=== PATIENT | female | born 1930 | race Caucasian/White ===

== ENCOUNTER 2016-09-16 19:36 | Inpatient (IN) | payer MEDICARE, OTHER ==
--- NOTE | ~2016-09-16 | HP ---
History And Physical [address] [place]. [address] NAME: CAROLINE LILLY : 32 STATUS : ADM IN [facility]#: [id number] AGE: 86 ADM/REG DATE : 09/16/16 MR#: [id number] REPORT SERV DATE: 09/17/16 DICTATED BY: EVELYN PARISI DATE: 09/17/16 REPORT STATUS : Draft TRANSCRIBED BY: MODAnahi DATE: 09/17/16 DATE OF ADMISSION: 09/16/2016 CHIEF COMPLAINT: Right hip pain. HISTORY OF PRESENT ILLNESS: 86-year-old, white female, transferred from [facility] at [facility] to [facility] for the above complaint. Due to the patient's decreased mental status and dementia, full history and physical exam is difficult to obtain. Chart and staff were reviewed. The patient has been residing at [facility]. She started complaining of hip pain. She was sent to the emergency room, workup there revealed acute right hip fracture, probable right lower lobe pneumonia and urine that appeared to possibly be infected. She was therefore admitted for IV antibiotics, orthopedic consultation, pain management, and medical care. Currently, the patient is resting quietly in bed, denies any severe pain at this time, no nausea or vomiting, no fever or chills, is at her pleasantly demented self at this time. ALLERGIES: NO KNOWN DRUG ALLERGIES. MEDICATIONS: Please see MAR. PAST MEDICAL HISTORY: Dementia, depression, chronic kidney disease stage 3, CHF - questionable kind, atherosclerotic arterial disease, history of atrial fibrillation, AR, hyperlipidemia, history of smoking, gait impairment, history of DVT, anemia of chronic disease. PAST SURGICAL HISTORY: Bilateral breast implants. SOCIAL HISTORY: The patient resides at [facility] at [facility]. Does have a son and daughter. Cheondoism uatsdin. FAMILY HISTORY: Unable to obtain. REVIEW OF SYSTEMS: Unable to obtain. PHYSICAL EXAMINATION: VITAL SIGNS: Blood pressure 158/70, pulse 90, respirations 18, temperature 98.4. GENERAL: Pleasantly, confused, white female, in no acute distress at this time. HEAD: Normocephalic, atraumatic. EYES: Anicteric. ENT: Moist mucosa with poor dentition. NECK: Cachectic but no JVD. History And Physical [address] [place]. [address] NAME: CAROLINE LILLY : 32 STATUS : ADM IN PAT#: [id number] AGE: 86 ADM/REG DATE : 09/16/16 MR#: [id number] REPORT SERV DATE: 09/17/16 DICTATED BY: EVELYN PARISI DATE: 09/17/16 REPORT STATUS : Draft TRANSCRIBED BY: MODL DATE: 09/17/16 LUNGS: CTA without RRW. HEART: Regular rate and rhythm without murmurs, gallops, or rubs. ABDOMEN: Soft, positive bowel sounds, NT, ND. No R/G. EXTREMITIES: Wasting is present. NEUROLOGIC: No acute focal changes as she is pleasantly demented. MUSCULOSKELETAL: Right hip pain with some range of motion. LAB: CBC shows WBC 16, H and H 12.0 and 36.6, PLT 223. Chemistry shows sodium 133, K 4.6, CO 97, CO2 of 24, BUN 12, creatinine 1.26. GFR 39. Urinalysis shows cloudy urine with large amount of LEs and 45 wbc's and many bacteria with 1 epithelial cell. IMAGING: Portable chest x-ray done in the emergency room shows suspected right upper lobe pneumonia and bilateral calcified breast implants. Right hip x-ray shows Garden 1 femoral neck fracture. IMPRESSION: 1. Gait impairment. 2. Fall with Garden 1 femoral neck right fracture. 3. Pyuria. 4. Leukocytosis. 5. Hyponatremia. 6. Anemia of chronic disease. 7. Chronic kidney disease stage 3. 8. Dementia. PLAN: 1. We will consult Ortho and initiate pain control. The patient is at risk for respiratory depression due to pain medications. 2. Follow leukocytosis and treat with antibiotics. The patient is at risk for sepsis. 3. Follow up on urine culture and treat accordingly. The patient is at risk for pyelonephritis and multi-system organ failure. 4. Follow sodium and watch symptoms as the patient is at risk for BENEFITS REPRESENTATIVE symptoms. 5. Watch H and H, slowly falling. The patient is at risk for acute coronary syndrome. 6. Avoid any nephrotoxins and watch renal function as she is at risk for acute kidney failure. 7. DVT prophylaxis. 8. Make sure the patient's needs are met as she does have dementia and is at risk for increased behaviors. /JP Evelyn Parisi M.D. / [id number] History And Physical [address] [address] NAME: CAROLINE LILLY : 31 STATUS : ADM IN [facility]#: [id number] AGE: 86 ADM/REG DATE : 09/16/16 MR#: [id number] REPORT SERV DATE: 09/17/16 DICTATED BY: EVELYN PARISI DATE: 09/17/16 REPORT STATUS : Draft TRANSCRIBED BY: MOEL DATE: 09/17/16 CC: Evelyn Parisi M.D.
--- NOTE | ~2016-09-16 | OP ---
Record Of Operation [facility] [address] [place]. [address] NAME: CAROLINE LILLY : 32 STATUS : ADM IN [facility]#: [id number] AGE: 86 ADM/REG DATE : 09/16/16 MR#: [id number] REPORT SERV DATE: 09/18/16 DICTATED BY: SAM MELÉNDEZ DATE: 09/18/16 REPORT STATUS : Draft TRANSCRIBED BY: MODL DATE: 09/18/16 DATE OF PROCEDURE: 09/18/2016 PREOPERATIVE DIAGNOSIS: Displaced right femoral neck fracture. POSTOPERATIVE DIAGNOSIS: Displaced right femoral neck fracture. OPERATION: Right hip hemiarthroplasty. SURGEON: Sam Meléndez MD QUALITY COMPLIANCE MANAGER: Bebeto Orr. ANESTHESIA: General endotracheal. ESTIMATED BLOOD LOSS: 200 mL. COMPLICATIONS: None. DRAIN: ConstaVac x1. IMPLANTS: DePuy Lejunior size 5 standard offset femoral component with a 46 mm outer diameter, +0 monopolar head and neck segment. INDICATIONS: Ms. Lilly is an 86-year-old female who sustained the above-mentioned fracture in a fall. It was recommended that she undergo hemiarthroplasty. Risks of the procedure as detailed in the orthopedic consult and operative consent were discussed with her daughter preoperatively. She fully understood and has requested to proceed. DESCRIPTION OF PROCEDURE: The patient was brought to the operating room and after adequate induction of anesthesia was positioned in the lateral decubitus position using the hip academic advisement director positioners. All appropriate pressure points were padded. The patient was given 1 gram of Ancef IV preoperatively. The hip was then prepped and draped in the usual sterile fashion. A posterolateral approach to the hip was performed. The skin and subcutaneous tissues were incised sharply using a #10 blade; electrocautery was used as needed to maintain hemostasis. The fascia conner and fascia over the gluteus susan were incised in line with the incision and the fibers of the gluteus susan split using blunt dissection. The sciatic nerve was identified and carefully protected throughout the remainder of the case. A Charnley retractor was placed. The hip was then placed in flexion and internal rotation and the gluteus medius retracted anteriorly to expose the piriformis tendon. A full thickness capsulotomy was begun at the superior border of the piriformis tendon and extended anteriorly inferiorly using an inside out technique, taking down a portion of the short external rotators. Care was taken not to damage the labrum of the hip. The fracture site was exposed and the femur displaced anteriorly. A corkscrew was used to excise the femoral head and the femoral head sized using hole templates. The appropriate sized femoral head trial was placed in the acetabulum to assure appropriate fit. Record Of Operation [facility] [address] [place]. [address] NAME: CAROLINE LILLY : 32 STATUS : ADM IN PAT#: [id number] AGE: 86 ADM/REG DATE : 09/16/16 MR#: [id number] REPORT SERV DATE: 09/18/16 DICTATED BY: SAM MELÉNDEZ DATE: 09/18/16 REPORT STATUS : Draft TRANSCRIBED BY: JP DATE: 09/18/16 Attention was then returned to the femur. The hip was placed in flexion and internal rotation and retractors carefully placed, protecting the sciatic nerve. The medial aspect of the greater trochanter was debrided of any cortical bone and soft tissue. The femoral canal was opened using a blunt tipped reamer. The lateralizing reamer was then used to clear any remaining cortical bone. The femur was then sequentially broached, beginning with size 1 and progressing sequentially until appropriate proximal metaphyseal fit and fill was obtained. The trial broach was left in place and a trial head and neck segment placed. The hip was reduced. The neck length was adjusted to reproduce equal leg lengths. The stability of the hip was then assessed at the patient's limit of extension and external rotation and to assure stability to 90 degrees of flexion and a minimum of 70 degrees of internal rotation and also stability in the position of sleep. Once this had been obtained, the hip was dislocated and the trial components were removed. The femoral canal was copiously irrigated with normal saline and dried and the final femoral component impacted into the femur to an identical level and identical anteversion of the trial component. A trial reduction was once again performed. Leg length and stability were unchanged. The true head and neck segment were then impacted into the clean femoral taper. The acetabulum was inspected to be sure it was free of all foreign matter and the hip reduced. The wound was copiously irrigated with pulsatile lavage normal saline. The capsule was repaired using interrupted #1 Vicryl suture in [id number] fashion. The short external rotators were repaired using a combination of #5 Ethibond and #1 Vicryl suture in horizontal mattress fashion. A drain was placed deep to the fascia. The fascia was repaired using interrupted #1 Vicryl suture in [id number] fashion. Subcutaneous tissue was approximated using interrupted 2-0 Vicryl suture and the skin stapled. Sterile dressing was applied and the patient awakened and taken to the recovery room in stable condition. POSTOP PLAN: The patient is to be weightbearing as tolerated with physical therapy to be started per hemiarthroplasty protocol. The patient will be on Coumadin and mechanical deep venous thrombosis prophylaxis. [place]/JP Sam Meléndez M.D. / [id number] CC: Yadiel Armendariz M.D. NO PCP
--- NOTE | ~2016-09-16 | CN ---
Consultation Report [facility] [address] [place]. [address] NAME: CAROLINE LILLY : 32 STATUS : ADM IN PAT#: [id number] AGE: 86 ADM/REG DATE : 09/16/16 MR#: [id number] REPORT SERV DATE: 09/18/16 DICTATED BY: SAM MELÉNDEZ DATE: 09/18/16 REPORT STATUS : Draft TRANSCRIBED BY: MODL DATE: 09/18/16 CONSULT DATE OF CONSULTATION: 09/18/2016 CHIEF COMPLAINT: Right hip pain. HISTORY OF PRESENT ILLNESS: Ms Lilly is an 86-year-old female who fell, landing on her right side. She was unable to ambulate after the fall. She presented to [facility], where x-rays showed a displaced right femoral neck fracture. I have now been asked to see her for evaluation and treatment. On questioning, the patient is unable provide any history due to underlying dementia. There was no known loss of consciousness or mental status changes at the time of the fall. PHYSICAL EXAMINATION: She is awake, alert and oriented x1. There is no cervical tenderness. There is no discernible bony injury of either upper extremity or left lower extremity. She has no pain with AP or lateral compression of her pelvis. She is non-tolerant to any attempted active or passive right hip range of motion due to severe pain. There is moderate trochanteric tenderness. She has no tenderness in the mid thigh distally. She has palpable pedal pulses and normal sciatic nerve motor function on the right. DIAGNOSTIC STUDIES: X-rays of her right hip show a valgus impacted displaced right femoral neck fracture. IMPRESSION: Valgus impacted displaced right femoral neck fracture. Given the degree of displacement of Ms Lilly's fracture and underlying dementia, I have recommended right hip joao versus total hip arthroplasty. I reviewed the risks, benefits, and expected outcome of the procedure with her daughter. Specific risks were discussed including infection, neurovascular damage, DVT, PE, blood loss requiring transfusion, fracture, leg length discrepancy, component loosening, component wear, dislocation, anesthetic complications and others. Her daughter has a good understanding and has requested to proceed with surgical scheduling. [place]/JP Sam Meléndez M.D. / [id number] Consultation Report [address] [place]. [address] NAME: CAROLINE LILLY : 32 STATUS : ADM IN PAT#: [id number] AGE: 86 ADM/REG DATE : 09/16/16 MR#: [id number] REPORT SERV DATE: 09/18/16 DICTATED BY: SAM MELÉNDEZ DATE: 09/18/16 REPORT STATUS : Draft TRANSCRIBED BY: JP DATE: 09/18/16 CC: Yadiel Armendariz M.D.
--- NOTE | ~2016-09-16 | DS ---
Discharge Summary [facility] [address] [place]. [address] NAME: CAROLINE LILLY : 32 STATUS : DIS IN PAT#: [id number] AGE: 86 ADM/REG DATE : 09/16/16 MR#: [id number] REPORT SERV DATE: 10/06/16 DICTATED BY: EVELYN PARISI DATE: 10/05/16 REPORT STATUS : Draft TRANSCRIBED BY: JP DATE: 10/05/16 Data Collection from hospitalization DISCHARGE DIAGNOSES: 1. Right hip fracture, status post right hip hemiarthroplasty. 2. Hypertension. 3. Stage III chronic kidney disease. 4. Dementia. 5. Urinary tract infection. 6. Hyperlipidemia. 7. Hypercoagulopathy. 8. Congestive heart failure. 9. Depression. 10.Atherosclerotic arterial disease. 11.History of atrial fibrillation. 12.History of myocardial infarction. 13.Former smoker. 14.Gait impairment. 15.Anemia of chronic disease. CONSULTATIONS: Sam Meléndez M.D. PROCEDURES PERFORMED: Right hip hemiarthroplasty, 09/18/2016. PATHOLOGY: Femur head, bone and tissue, right hip - changes consistent with recent fracture. DISCHARGE MEDICATIONS: Artificial Tears one drop in both eyes twice a day, vitamin C 500 mg twice a day, Lipitor 10 mg at bedtime, Coreg 6.25 mg twice a day, vitamin B12 of 1000 mcg IM every 30 days, Depakote 250 mg twice a day, Colace 100 mg twice a day, Aricept 10 mg at bedtime, Pepcid 20 mg at bedtime, ferrous sulfate 300 mg with breakfast and supper, Remeron 15 mg at bedtime, Theragran tablets one tablet with breakfast, Zosyn 3.375 g IV every 8 hours as instructed, K-Dur 20 mEq every morning, Flomax 0.4 mg at 6 p.m. as instructed, Effexor 37.5 mg every morning, Coumadin as instructed, sodium chloride as instructed, Proventil 3 mL via inhaler every four hours while awake, Tylenol 650 mg twice a day, and aspirin 81 mg every morning. CONDITION AT DISCHARGE: Stable. DISPOSITION: The patient was discharged to [facility] on a regular/mechanical soft diet with activities as instructed. She will follow up with Dr. Meléndez on 10/10/2016. She will follow up with Dr. Linwood Amin on 10/06/2016. HOSPITAL COURSE: This is an 86-year-old female who was transferred from [facility] at [facility] to the [facility] Emergency Room with a chief complaint of right hip pain. She was residing at [facility]. She began to complain of hip pain. In the emergency room, her workup revealed acute right hip fracture, probable right lower lobe pneumonia, and urine that appeared to be possibly infected. She was admitted to the hospital at this time for further evaluation and treatment. Discharge Summary [place] [id number] [facility] [place]. [address] NAME: CAROLINE LILLY : 32 STATUS : DIS IN PAT#: [id number] AGE: 86 ADM/REG DATE : 09/16/16 MR#: [id number] REPORT SERV DATE: 10/06/16 DICTATED BY: EVELYN PARISI DATE: 10/05/16 REPORT STATUS : Draft TRANSCRIBED BY: JP DATE: 10/05/16 Upon admission, we would avoid nephrotoxins. DVT prophylaxis was begun. Following day, she was seen by Dr. Sam Meléndez regarding the right hip pain. X-rays had shown displaced right femoral neck fracture. There was no loss of consciousness or mental status changes at the time of the fall. His impression included valgus-impacted displaced right femoral neck fracture. Treatment options were discussed with the patient's daughter, and it was elected to proceed with surgical intervention. The patient was taken to the operating room where she underwent the above-mentioned procedure. She tolerated this well. There were no complications. On postop day #1, the patient reported that she was doing well. She denied any complaints of hip pain. SCDs remained in place. H and H had decreased slightly. She did have some confusion. She was off Eliquis. She would be on Coumadin for six weeks. On the , she denied any complaints of pain. She was eating well. Fall precautions were in place. Renal function was stable at this time. Supportive care continued. She was evaluated by Occupational and Physical Therapy. On 09/21/2016, she had no focal deficits. She had no edema. She denied any complaints of shortness of breath, chest pain, nausea, vomiting, or abdominal pain. She was eating better. LINWOOD/SCDs remained in place. The next day, her INR level was 3.2. Coumadin was continued. It had been held the day previously. The patient does have a history of severe dementia. Aricept and Remeron were continued as well as her Effexor and Depakote. She remained on IV Zosyn. Over the next couple of days, she continued to do well. Discharge planning was performed. Hypercoagulopathy had improved. INR level was now 2.1. On 09/25/2016, she did complain of some right hip pain only when moved. Discharge instructions were given. Due to her improved and stable condition, she was discharged back to [facility] with the above-stated instructions. Information collected by: Cindy Fortune I submit the above information as my discharge summary. [place]IZ[place]/JP Evelyn Parisi M.D. / [id number] CC: Evelyn Parisi M.D. [facility] Sam Meléndez M.D.
[~2016-09-16 19:36] MED LIST: *UNABLE2; ASAB PO; ATV.5 PO; COREG6 PO; ELIQUIS 2.5 MG2.5 MG PO; L20 PO; LIPITOR40 PO; PRIN2.5 PO; SPIRO25 PO; T PO; TESS PO; XANAX1 MG PO; ZOFRAN4 PO
[2016-09-16 20:52] LABS: ASCORBIC ACID (UR NOT ORDER) 40 (NEG); BILIRUBIN, URINE NEGATIVE (NEG); ER URINALYSIS TAT 0 Hrs 09 Mins; KETONE, URINE NEGATIVE (NEG); LEUKOCYTE ESTERASE(NOT OR LARGE (NEG); NITRITE (URINE) NEG (NEG); WBC (NOT ORDERED) (RFLEX) 45 (0-5)
[2016-09-16 21:02] LABS: BASOPHILS 0.3 %; BASOPHILS ABSOLUTE 0.05 10/3/uL (0.0-0.16); EOSINOPHILS 0.6 %; EOSINOPHILS ABSOLUTE 0.09 10/3/uL (0.0-0.53); HEMATOCRIT 36.6 % (36.0-48.0); IMMATURE GRANULOCYTES 0.4 %; IMMATURE GRANULOCYTES ABSOLUTE 0.06 10/3/uL (0.0-0.11); LYMPHOCYTES ABSOLUTE 1.77 10/3/uL (0.67-4.30); MEAN CORPUS HGB CONC 32.8 g/dL (32.0-36.0); MEAN CORPUSCULAR HEMOGLOB 30.5 pg (26.0-34.0); MEAN PLATELET VOLUME 9.8 fL (9.2-13.0); MONOCYTES 6.4 %; MONOCYTES ABSOLUTE 1.03 10/3/uL (0.21-1.20); NEUTROPHILS 81.3 %; NEUTROPHILS ABSOLUTE 13.12 10/3/uL (2.02-8.40); PLATELET COUNT 223 10/3/uL (150-400); RBC DISTRIBUTION WIDTH 13.7 % (12.0-16.0); RED CELL COUNT 3.94 10/6/uL (4.0-5.6); WHITE BLOOD CELLS 16.1 10/3/uL (4.5-10.5)
[2016-09-16 21:05] LABS: MANUAL DIFF NO %; MEAN CORPUSCULAR VOLUME 92.9 fL (80-100)
[2016-09-16 21:17] LABS: ALBUMIN 2.8 G/DL (3.5-5.0); CALCIUM, SERUM 8.9 MG/DL (8.5-10.4); CHLORIDE, SERUM 97 MMOL/L (96-112); CREATININE 1.26 MG/DL (0.55-1.02); GFR AFRICAN AMERICAN 45 ML/MIN (>=60); GFR NON AFRICAN AMERICAN 39 ML/MIN (>=60); GLUCOSE, SERUM 115 MG/DL (60-99); POTASSIUM, SERUM 4.6 MMOL/L (3.5-5.3); SGPT(ALT) 13 U/L (5-65); TOTAL BILIRUBIN 0.3 MG/DL (0-1.2); TOTAL PROTEIN 8.5 G/DL (6.0-8.5)
[2016-09-16 21:18] LABS: A/G RATIO 0.5 (0.7-1.9); ALKALINE PHOSPHATASE 141 U/L (45-117); BUN (BLOOD UREA NITROGEN) 12 MG/DL (6-23); CO2 (CARBON DIOXIDE) 24 MMOL/L (24-34); GLOBULIN 5.7 G/DL (2.5-4.1); SGOT(AST) 19 U/L (5-40); SODIUM, SERUM 133 MMOL/L (135-148)
[2016-09-16] MEDS ORDERED: ARICEPT10 PO (21:30)
[2016-09-16] MEDS ORDERED: COREG6 PO (21:30)
[2016-09-16] MEDS ORDERED: VITC500 PO (21:30)
[2016-09-16] MEDS ORDERED: KDUR20 PO (21:30)
[2016-09-16] MEDS ORDERED: EFFEX37.5 PO (21:31)
[2016-09-16] MEDS ORDERED: ELIQUIS 2.5 MG2.5 MG PO (21:32)
[2016-09-16] MEDS ORDERED: DEPAKOT250 PO (21:32)
[2016-09-16] MEDS ORDERED: LIPITOR10 PO (21:33)
[2016-09-16] MEDS ORDERED: 8 HOUR650 MG PO (21:33)
[2016-09-16] MEDS ORDERED: B121000P IM (21:34)
[2016-09-16] MEDS ORDERED: TEARS PURE OPH (21:34)
[2016-09-16] MEDS ORDERED: REM15 PO (21:34)
[2016-09-16] MEDS ORDERED: HALF81 PO (21:35)
[2016-09-16 21:49] LABS: LACTATE 1.2 MMOL/L (0.3-2.4)
[2016-09-17 05:04] LABS: BASOPHILS 0.3 %; BASOPHILS ABSOLUTE 0.05 10/3/uL (0.0-0.16); EOSINOPHILS 1.5 %; EOSINOPHILS ABSOLUTE 0.21 10/3/uL (0.0-0.53); HEMOGLOBIN 10.8 g/dL (12.0-16.0); IMMATURE GRANULOCYTES 0.2 %; IMMATURE GRANULOCYTES ABSOLUTE 0.03 10/3/uL (0.0-0.11); LYMPHOCYTES 8.9 %; LYMPHOCYTES ABSOLUTE 1.29 10/3/uL (0.67-4.30); MEAN CORPUS HGB CONC 33.2 g/dL (32.0-36.0); MEAN CORPUSCULAR HEMOGLOB 30.9 pg (26.0-34.0); MEAN CORPUSCULAR VOLUME 92.9 fL (80-100); MEAN PLATELET VOLUME 9.6 fL (9.2-13.0); MONOCYTES 6.9 %; MONOCYTES ABSOLUTE 0.99 10/3/uL (0.21-1.20); NEUTROPHILS 82.2 %; NEUTROPHILS ABSOLUTE 11.86 10/3/uL (2.02-8.40); PLATELET COUNT 216 10/3/uL (150-400); WHITE BLOOD CELLS 14.4 10/3/uL (4.5-10.5)
[2016-09-17 05:06] LABS: HEMATOCRIT 32.5 % (36.0-48.0); MANUAL DIFF NO %
[2016-09-17 05:17] LABS: BUN (BLOOD UREA NITROGEN) 10 MG/DL (6-23); CALCIUM, SERUM 8.5 MG/DL (8.5-10.4); CHLORIDE, SERUM 101 MMOL/L (96-112); CO2 (CARBON DIOXIDE) 26 MMOL/L (24-34); CREATININE 1.14 MG/DL (0.55-1.02); GFR AFRICAN AMERICAN 51 ML/MIN (>=60); GFR NON AFRICAN AMERICAN 44 ML/MIN (>=60); GLUCOSE, SERUM 121 MG/DL (60-99); POTASSIUM, SERUM 4.4 MMOL/L (3.5-5.3); SODIUM, SERUM 137 MMOL/L (135-148)
[2016-09-17 16:58] LABS: ASCORBIC ACID (UR NOT ORDER) 40 (NEG); BILIRUBIN, URINE NEGATIVE (NEG); KETONE, URINE TRACE MG/DL (NEG); LEUKOCYTE ESTERASE(NOT OR MOD (NEG); WBC (NOT ORDERED) (RFLEX) 60 (0-5)
[2016-09-18 05:34] LABS: BASOPHILS 0.4 %; BASOPHILS ABSOLUTE 0.04 10/3/uL (0.0-0.16); EOSINOPHILS 1.3 %; EOSINOPHILS ABSOLUTE 0.14 10/3/uL (0.0-0.53); HEMATOCRIT 29.9 % (36.0-48.0); HEMOGLOBIN 9.9 g/dL (12.0-16.0); IMMATURE GRANULOCYTES 0.3 %; IMMATURE GRANULOCYTES ABSOLUTE 0.03 10/3/uL (0.0-0.11); LYMPHOCYTES ABSOLUTE 1.62 10/3/uL (0.67-4.30); MEAN CORPUS HGB CONC 33.1 g/dL (32.0-36.0); MEAN CORPUSCULAR HEMOGLOB 30.9 pg (26.0-34.0); MEAN CORPUSCULAR VOLUME 93.4 fL (80-100); MEAN PLATELET VOLUME 9.4 fL (9.2-13.0); MONOCYTES 10.6 %; MONOCYTES ABSOLUTE 1.14 10/3/uL (0.21-1.20); NEUTROPHILS 72.4 %; PLATELET COUNT 193 10/3/uL (150-400); RBC DISTRIBUTION WIDTH 13.8 % (12.0-16.0); WHITE BLOOD CELLS 10.8 10/3/uL (4.5-10.5)
[2016-09-18 05:41] LABS: MANUAL DIFF NO %
[2016-09-18 05:51] LABS: BUN (BLOOD UREA NITROGEN) 10 MG/DL (6-23); CALCIUM, SERUM 8.2 MG/DL (8.5-10.4); CHLORIDE, SERUM 101 MMOL/L (96-112); CO2 (CARBON DIOXIDE) 29 MMOL/L (24-34); CREATININE 1.02 MG/DL (0.55-1.02); GFR AFRICAN AMERICAN 58 ML/MIN (>=60); GFR NON AFRICAN AMERICAN 50 ML/MIN (>=60); SODIUM, SERUM 138 MMOL/L (135-148)
[2016-09-18 05:54] LABS: GLUCOSE, SERUM 92 MG/DL (60-99); POTASSIUM, SERUM 3.5 MMOL/L (3.5-5.3)
[2016-09-18 17:31] LABS: INTERNATIONAL NORMAL RATI 1.3 UNITS (-); PROTIME (NOT ORD) 15.9 SEC (12.0-14.5)
[2016-09-19 06:31] LABS: BASOPHILS 0.3 %; BASOPHILS ABSOLUTE 0.04 10/3/uL (0.0-0.16); EOSINOPHILS 0.8 %; EOSINOPHILS ABSOLUTE 0.11 10/3/uL (0.0-0.53); HEMATOCRIT 27.5 % (36.0-48.0); HEMOGLOBIN 9.3 g/dL (12.0-16.0); IMMATURE GRANULOCYTES 0.3 %; IMMATURE GRANULOCYTES ABSOLUTE 0.04 10/3/uL (0.0-0.11); LYMPHOCYTES ABSOLUTE 1.22 10/3/uL (0.67-4.30); MEAN CORPUS HGB CONC 33.8 g/dL (32.0-36.0); MEAN CORPUSCULAR HEMOGLOB 31.1 pg (26.0-34.0); MEAN PLATELET VOLUME 9.6 fL (9.2-13.0); MONOCYTES 10.5 %; MONOCYTES ABSOLUTE 1.42 10/3/uL (0.21-1.20); NEUTROPHILS 79.1 %; NEUTROPHILS ABSOLUTE 10.72 10/3/uL (2.02-8.40); PLATELET COUNT 190 10/3/uL (150-400); RBC DISTRIBUTION WIDTH 13.7 % (12.0-16.0); RED CELL COUNT 2.99 10/6/uL (4.0-5.6); WHITE BLOOD CELLS 13.6 10/3/uL (4.5-10.5)
[2016-09-19 06:32] LABS: MANUAL DIFF NO %
[2016-09-19 06:35] LABS: INTERNATIONAL NORMAL RATI 1.4 UNITS (-)
[2016-09-19 06:41] LABS: BUN (BLOOD UREA NITROGEN) 9 MG/DL (6-23); CHLORIDE, SERUM 95 MMOL/L (96-112); CO2 (CARBON DIOXIDE) 25 MMOL/L (24-34); CREATININE 0.94 MG/DL (0.55-1.02); GFR AFRICAN AMERICAN 64 ML/MIN (>=60); GFR NON AFRICAN AMERICAN 55 ML/MIN (>=60); GLUCOSE, SERUM 98 MG/DL (60-99); POTASSIUM, SERUM 3.9 MMOL/L (3.5-5.3); SODIUM, SERUM 132 MMOL/L (135-148)
[2016-09-20 09:47] LABS: HEMATOCRIT 27.1 % (36.0-48.0); HEMOGLOBIN 9.2 g/dL (12.0-16.0)
[2016-09-20 09:55] LABS: INTERNATIONAL NORMAL RATI 2.9 UNITS (-)
[2016-09-20 09:58] LABS: PROTIME (NOT ORD) 30.2 SEC (12.0-14.5)
[2016-09-21 09:25] LABS: INTERNATIONAL NORMAL RATI 3.2 UNITS (-); PROTIME (NOT ORD) 32.4 SEC (12.0-14.5)
[2016-09-21 09:58] LABS: HEMOGLOBIN 10.7 g/dL (12.0-16.0)
[2016-09-22 09:32] LABS: INTERNATIONAL NORMAL RATI 4.4 UNITS (-)
[2016-09-22 09:33] LABS: PROTIME (NOT ORD) 41.4 SEC (12.0-14.5)
[2016-09-23 06:54] LABS: INTERNATIONAL NORMAL RATI 3.2 UNITS (-)
[2016-09-23 06:57] LABS: PROTIME (NOT ORD) 32.2 SEC (12.0-14.5)
[2016-09-24 07:22] LABS: INTERNATIONAL NORMAL RATI 2.1 UNITS (-)
[2016-09-24 07:26] LABS: PROTIME (NOT ORD) 23.2 SEC (12.0-14.5)
[2016-09-25 05:17] LABS: INTERNATIONAL NORMAL RATI 1.6 UNITS (-)
[2016-09-25 05:19] LABS: PROTIME (NOT ORD) 18.6 SEC (12.0-14.5)
== END 2016-09-25 17:03 | DRG 469 ==
LOC: ER 19:36 → 1SO 23:04
PROVIDERS: Emergency Medicine; Family Medicine; Specialist
PROC: 0SRR01A Replacement of Right Hip Joint, Femoral Surface with Metal Synthetic Substitute, Uncemented, Open Approach (ICD-10-PCS; principal; 2016-09-18 12:15)
DX: S72.001A Fracture of unspecified part of neck of right femur, initial encounter for closed fracture (principal); J18.9 Pneumonia, unspecified organism; D68.9 Coagulation defect, unspecified; N39.0 Urinary tract infection, site not specified; E87.1 Hypo-osmolality and hyponatremia; F03.90 Unspecified dementia, unspecified severity, without behavioral disturbance, psychotic disturbance, mood disturbance, and anxiety; I48.91 Unspecified atrial fibrillation; N18.3 Chronic kidney disease, stage 3 (moderate); D63.8 Anemia in other chronic diseases classified elsewhere; B96.20 Unspecified Escherichia coli [E. coli] as the cause of diseases classified elsewhere; I12.9 Hypertensive chronic kidney disease with stage 1 through stage 4 chronic kidney disease, or unspecified chronic kidney disease; E78.5 Hyperlipidemia, unspecified; I25.2 Old myocardial infarction; F32.9 Major depressive disorder, single episode, unspecified; W18.30XA Fall on same level, unspecified, initial encounter; Z86.718 Personal history of other venous thrombosis and embolism; Z87.891 Personal history of nicotine dependence; Z79.01 Long term (current) use of anticoagulants; Z79.82 Long term (current) use of aspirin; Z79.899 Other long term (current) drug therapy
CPT/HCPCS: 36415; 71010; 72170; 73502-RT; 80048; 80053; 81001; 83605; 84145; 85014; 85018; 85025; 85610; 86850; 86900; 86901; 87040; 87077; 87086; 87186; 87641; 88305; 88311; 93005; 94640; 96374; 97110-GO; 97110-GP; 97162-GP; 97164-GP; 97165-GO; 97530-GO; 97530-GP; 97535-GO; 99285; A9270-GY; C1776; G8978-CM-GP; G8978-CN-GP; G8979-CL-GP; G8987-CK-GO; G8988-CJ-GO; J0456; J0690; J1170; J2370; J2405; J2543; J2710; J3010